=== PATIENT | female | born 2000 | race Hispanic/Latino ===

== ENCOUNTER → 2025-02-06 | Outpatient (REF) | payer BC ==
[~2025-02-06] MED LIST: IOPAMIDOL 370 MG/ML 100 ML INFUS..BTL INJ ONE; SODIUM CHLORIDE 0.9% 100 ML ONE
== END ==
LOC: CT 07:31
PROVIDERS: ATTEND Internal Medicine Cardiovascular Disease
DX: R07.2 Precordial pain (principal)
CPT/HCPCS: 75574; J7050; Q9967